=== PATIENT | male | born 1965 | race Caucasian/White ===

== ENCOUNTER 2017-04-06 06:07 | Day surgery (SDC) | payer OTHER ==
[~2017-04-06] VITALS: Ht 185.4 cm; Wt 111.1 kg
[~2017-04-06 06:07] MED LIST: ACTOS15 MG PO; ACTOS30 MG OR; ACTOS30 MG PO; ASPIRIN81 MG PO; ENALAPRIL20 MG PO; FLUZONE SPLT1 M1 IM; GLIPIZIDE10 M1 PO; GLIPIZIDE10 MG PO; LEVEMIR FL100 UNIT/M SC; METFORMIN HCL1000 MG PO; MULTI COMPLETE PO; PEN NEEDLES31 GX6MM SC; PIOGLITAZONE HC30 MG PO; SIMVASTATIN40 MG PO; VICTOZA18 MG/3 ML SC
[2017-04-06 07:50] VITALS: BP 125/79
== END 2017-04-06 08:06 | disposition home or self-care (01) | DRG 951 ==
LOC: ENDO 06:07
PROVIDERS: ATTEND Surgery
PROC: 0DBL8ZX Excision of Transverse Colon, Via Natural or Artificial Opening Endoscopic, Diagnostic (ICD-10-PCS; principal; 2017-04-06)
DX: Z12.11 Encounter for screening for malignant neoplasm of colon (principal); I10 Essential (primary) hypertension; D12.3 Benign neoplasm of transverse colon; E11.9 Type 2 diabetes mellitus without complications; E78.5 Hyperlipidemia, unspecified

== ENCOUNTER 2017-04-10 08:09 | Emergency (ER) | payer OTHER ==
[~2017-04-10] VITALS: Ht 185.4 cm; Wt 111.3 kg
[2017-04-10 08:56] LABS: ALBUMIN 4.2 g/dL (3.2-5.0); ALKALINE PHOSPHATASE 70 u/l (38-126); ANION GAP 19 (6-22 (CALC)); BILIRUBIN, TOTAL 0.8 mg/dL (0.0-1.4); BUN 12 mg/dL (9-20); BUN/CREATININE RATIO 17 (12-20 (CALC)); CALCIUM 9.2 mg/dL (8.4-10.2); CARBON DIOXIDE 27 mmol/l (22-30); CHLORIDE 97 mmol/l (95-108); CREATININE 0.7 mg/dL (0.7-1.3); GFR > 60 ML/MIN (>=60 (CALC)); GFR FOR AFR.AMER. > 60 ML/MIN (>=60 (CALC)); GLUCOSE 199 mg/dL (75-110); POTASSIUM 4.1 mmol/l (3.5-5.1); SGOT/AST 13 u/l (17-59); SGPT/ALT 24 u/l (21-72); SODIUM 139 mmol/l (137-146); TOTAL PROTEIN 7.6 g/dL (6.3-8.2)
[2017-04-10 09:05] LABS: HEMATOCRIT 43.2 % (39.0-50.0); HEMOGLOBIN 14.4 g/dl (14.0-18.0); IMMATURE GRANULOCYTES 0.4 % (0.0-1.0); MEAN CELL VOLUME 88.7 fL CALC (80.0-100.0); MEAN CORPUSCULAR HGB 29.6 pG CALC (26.0-32.0); MEAN CORPUSCULAR HGB CONC 33.3 g/L CALC (32.0-36.0); NEUT# 10.93 thou/uL (1.82-7.42); RED BLOOD COUNT 4.87 mill/uL (4.70-6.10); RED CELL DISTRI WIDTH 12.1 % (11.5-15.5)
[2017-04-10 09:07] LABS: MYOGLOBIN 18 ng/mL (0 - 121)
[2017-04-10 12:32] LABS: ACT PARTIAL THROMBO TIME 24.5 SECONDS (20.0-32.5); INTERNATIONAL NORMALIZED RATIO 1.1 RATIO (0.7-1.3); PROTHROMBIN TIME 11.9 SECONDS (9.0-12.5)
[2017-04-10 14:23] VITALS: BP 156/89
== END 2017-04-10 14:23 | disposition short-term general hospital (02) | DRG 175 ==
LOC: ED 08:09
PROVIDERS: Emergency Medicine
DX: I26.99 Other pulmonary embolism without acute cor pulmonale (principal); J18.9 Pneumonia, unspecified organism; J02.0 Streptococcal pharyngitis; I82.C12 Acute embolism and thrombosis of left internal jugular vein; I10 Essential (primary) hypertension; E11.9 Type 2 diabetes mellitus without complications; R06.02 Shortness of breath; E78.00 Pure hypercholesterolemia, unspecified; R59.0 Localized enlarged lymph nodes; R00.0 Tachycardia, unspecified
CPT/HCPCS: J1650; Q9967

== ENCOUNTER 2017-04-24 16:40 | Emergency (ER) | payer OTHER ==
[~2017-04-24] VITALS: Ht 185.4 cm; Wt 120.0 kg
[2017-04-24 18:18] LABS: INTERNATIONAL NORMALIZED RATIO 4.8 RATIO (0.7-1.3); PROTHROMBIN TIME 58.7 SECONDS (9.0-12.5)
[2017-04-24 18:28] VITALS: BP 142/72
== END 2017-04-24 18:28 | disposition home or self-care (01) | DRG 556 ==
LOC: ED 16:40
PROVIDERS: Emergency Medicine
DX: M79.605 Pain in left leg (principal); I10 Essential (primary) hypertension; M79.604 Pain in right leg; R22.32 Localized swelling, mass and lump, left upper limb; R79.1 Abnormal coagulation profile; Z86.711 Personal history of pulmonary embolism; Z79.01 Long term (current) use of anticoagulants; E11.9 Type 2 diabetes mellitus without complications

== ENCOUNTER 2017-06-15 08:43 | Day surgery (SDC) | payer OTHER ==
[~2017-06-15] VITALS: Ht 185.4 cm; Wt 108.4 kg
[~2017-06-15 08:43] MED LIST changes: +ACETAMIN500 M2 PO; +LEVOFLOXACIN750 MG PO; +LOVENOX120 MG/0.8; +METRONIDAZOLE500 MG PO; +ONDANSETRON4 MG PO
[2017-06-15 11:40] LABS: PROTHROMBIN TIME 11.2 SECONDS (9.0-12.5)
[2017-06-15 13:46] VITALS: BP 147/479
== END 2017-06-15 13:00 | disposition home or self-care (01) | DRG 375 ==
LOC: ORM 08:43
PROVIDERS: ATTEND Surgery
PROC: 0DB38ZX Excision of Lower Esophagus, Via Natural or Artificial Opening Endoscopic, Diagnostic (ICD-10-PCS; principal; 2017-06-15)
PROC: 0DB48ZX Excision of Esophagogastric Junction, Via Natural or Artificial Opening Endoscopic, Diagnostic (ICD-10-PCS; 2017-06-15)
PROC: 05H933Z Insertion of Infusion Device into Right Brachial Vein, Percutaneous Approach (ICD-10-PCS; 2017-06-15)
PROC: B51MZZA Fluoroscopy of Right Upper Extremity Veins, Guidance (ICD-10-PCS; 2017-06-15)
DX: C15.5 Malignant neoplasm of lower third of esophagus (principal); C77.9 Secondary and unspecified malignant neoplasm of lymph node, unspecified; I10 Essential (primary) hypertension; E11.9 Type 2 diabetes mellitus without complications; E78.5 Hyperlipidemia, unspecified; Z86.711 Personal history of pulmonary embolism; Z79.01 Long term (current) use of anticoagulants; Z86.718 Personal history of other venous thrombosis and embolism; Z86.010 Personal history of colon polyps